=== PATIENT | male | born 2000 | race African-American/Black ===

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

== ENCOUNTER 2020-11-28 13:21 | Emergency (ER) | payer BC, MEDICARE ==
[~2020-11-28] VITALS: Ht 170.2 cm; Wt 54.8 kg
--- NOTE | 2020-11-28 14:05 | NUR ---
inventory associate and driver note: Pt to room from lobby.
[2020-11-28] MEDS ORDERED: SODIUM CHLORIDE FLUSH 10ML SYR IVF ONE (14:30)
[2020-11-28] MEDS ORDERED: SODIUM CHLORIDE 0.9% 1,000ML IVBOLUS ONE (14:30)
[2020-11-28] MEDS ORDERED: DEXAMETHASONE 4 MG/ML, 1ML IVPush ONE (14:30)
[2020-11-28] MEDS ORDERED: METOCLOPRAMIDE 5 MG/ML, 2ML IVPush ONE (14:30)
[2020-11-28] MEDS ORDERED: KETOROLAC 30 MG/1 ML IVPush ONE (14:30)
[2020-11-28] MEDS ORDERED: DIPHENHYDRAMINE 50 MG/ML, 1ML IVPush ONE (14:30)
[2020-11-28] MEDS ORDERED: DEXAMETHASONE 4 MG/ML, 5ML ONE (14:37)
[2020-11-28] MEDS ORDERED: METOCLOPRAMIDE 5 MG/ML, 2ML ONE (14:38)
[2020-11-28] MEDS ORDERED: DIPHENHYDRAMINE 50 MG/ML, 1ML ONE (14:38)
[2020-11-28] MEDS ORDERED: KETOROLAC 30 MG/1 ML ONE (14:38)
--- NOTE | 2020-11-28 15:22 | NUR ---
DR. FELIPE NOTIFIED OF SUICIDE ASSESSMENT SCORE. REILLY AT BEDSIDE FOR PSYCH EVALUATION
--- NOTE | 2020-11-28 16:12 | NUR ---
PT REPORTS "MY ALBERT IS NOT BETTER YET. NOTIFIED"
--- NOTE | 2020-11-28 16:58 | NUR ---
PT RESTING ON ZOHAIB. AT BEDSIDE. PT STATING TO MD THAT HE "FEELS BETTER". VSS. NAD. CALL LIGHT W/IN REACH. AWAITING D/C PAPERWORK
[2020-11-28 17:51] VITALS: BP 105/68
== END 2020-11-28 18:02 | disposition home or self-care (01) ==
LOC: ED 16:35
DX: G43.119 Migraine with aura, intractable, without status migrainosus (principal); R11.2 Nausea with vomiting, unspecified; J45.909 Unspecified asthma, uncomplicated
CPT/HCPCS: 96361; 96374; 96375; 99284; J1100; J1200; J1885; J2765; J7030